=== PATIENT | male | born 1975 | race Caucasian/White ===

== ENCOUNTER 2017-12-01 00:28 | Emergency (ER) | payer OTHER ==
[2017-12-01 00:43] VITALS: BP 149/91; PULSE 109; TEMP 98.6; BMI 25.4
--- NOTE | 2017-12-01 02:14 | PDOC ---
History of Present Illness - General Chief Complaint: Lightheaded Stated Complaint: DIZZINESS Time Seen by Provider: 12/01/17 01:47 Past History - Past Medical History Allergies/Adverse Reactions: Allergies Allergy/AdvReac Type Severity Reaction Status Date / Time No Known Allergies Allergy Verified 12/01/17 03:40 Home Medications: Ambulatory Orders Albuterol Sulfate Inhaler - [Ventolin HFA Inhaler -] 1 - 2 inh PO Q4H #1 inhaler 12/01/17 Guaifenesin [Robitussin] 10 ml PO Q6H #200 ml 12/01/17 Prednisone [Deltasone -] 40 mg PO DAILY #8 tablet 12/01/17 - Suicide/Smoking/Psychosocial Hx Smoking History: Never smoked Have you smoked in the past 12 months: No Information on smoking cessation initiated: No Hx Alcohol Use: No Drug/Substance Use Hx: No *Physical Exam - Vital Signs Last Vital Signs Temp Pulse Resp BP Pulse Ox 98.6 F 109 H 20 149/91 99 12/01/17 00:28 12/01/17 00:28 12/01/17 00:28 12/01/17 00:28 12/01/17 00:28 *DC/Admit/Observation/Transfer Diagnosis at time of Disposition: Bronchitis - Discharge Dispostion Disposition: HOME Condition at time of disposition: Good Admit: No - Referrals Referrals: Abiodun Olivier MD [Staff Physician] - - Patient Instructions Printed Discharge Instructions: DI for Acute Bronchitis Additional Instructions: You have bronchitis. Your chest x-ray today was negative for pneumonia. Please take the albuterol inhaler every 4 hours as needed for cough and shortness of breath. Please take the prednisone as prescribed, 40 mg for the next 4 days. Your also prescribed Robitussin. You may take this every 6 hours as needed for cough. Home remedies work well such as tea and cough drops. Please follow-up with your primary care doctor this week. Return to the emergency department if you have worsening shortness of breath, difficulty breathing, fevers, or any changes in her symptoms. - Post Discharge Activity Forms/Work/School Notes: Back to Work
[2017-12-01] MEDS ORDERED: guaiFENesin 200 MG/10 ML 10 ML UNIT-DOSE CUPS PO ONE (02:15)
[2017-12-01] MEDS ORDERED: ALBUTEROL SO4 2.5/IPRATROPIUM 0.5 INH SOL 3 ML VIAL.NEB. NEB ONE ×2 (02:15→02:53)
--- NOTE | 2017-12-01 02:47 | PDOC ---
*Physical Exam - Vital Signs Last Vital Signs Temp Pulse Resp BP Pulse Ox 98.6 F 109 H 20 149/91 99 12/01/17 00:28 12/01/17 00:28 12/01/17 00:28 12/01/17 00:28 12/01/17 00:28
[2017-12-01] MEDS ORDERED: guaiFENesin/D-METHORPHAN HB 10 ML UNIT-DOSE CUPS ONE (02:53)
== END 2017-12-01 05:29 | disposition home or self-care (01) ==
LOC: JER 00:28
PROC: 3E0F7GC Introduction of Other Therapeutic Substance into Respiratory Tract, Via Natural or Artificial Opening (ICD-10-PCS; principal; 2017-12-01)
DX: J40 Bronchitis, not specified as acute or chronic (principal)
CPT/HCPCS: 71046-TC; 87804; 99281-25